=== PATIENT | female | born 1960 | race American Indian/Alaskan Native ===

== ENCOUNTER 2016-07-05 21:00 | Emergency (ER) | payer SELFPAY ==
[2016-07-05 21:55] LABS: Basophils % (Auto) 0.8 % (0.0-1.8); Eosinophils % (Auto) 2.4 % (0.0-4.3); Hematocrit 33.4 % (30.3-42.9); Hemoglobin 11.1 gm/dl (10.1-14.3); Mean Corpuscular HGB Conc 33 % (30-34); Mean Corpuscular Hemoglobin 30 pg (28-32); Mean Corpuscular Volume 90 fl (79-97); Platelet Count 139 K/mm3 (140-440); Red Blood Count 3.71 M/mm3 (3.65-5.03); Red Cell Distribution Width 18.2 % (13.2-15.2); White Blood Count 4.5 K/mm3 (4.5-11.0)
[2016-07-05 22:07] LABS: Alanine Aminotransferase 68 units/L (7-56); Albumin 3.2 g/dL (3.9-5); Albumin/Globulin Ratio 0.8 %; Alkaline Phosphatase 268 units/L (35-129); Anion Gap 16 mmol/L; Bilirubin,Total 1.5 mg/dL (0.1-1.2); Blood Urea Nitrogen 3 mg/dL (7-17); Calcium 8.1 mg/dL (8.4-10.2); Carbon Dioxide 24 mmol/L (22-30); Chloride 109.7 mmol/L (98-107); Glucose 104 mg/dL (65-100); Potassium 3.6 mmol/L (3.6-5.0); Sodium 146 mmol/L (137-145); Total Protein 7.3 g/dL (6.3-8.2)
[2016-07-06 06:07] LABS: Bilirubin,Urine NEG (Negative); Blood,Urine NEG (Negative); Ketones,Urine NEG (Negative); Leukocyte Esterase,Urine NEG (Negative); Mucus,Urine FEW /HPF; Nitrite,Urine POS (Negative); Protein,Urine <15 mg/dL mg/dL (Negative); RBC,Urine < 1.0 /HPF (0.0-6.0); Urobilinogen,Urine < 2.0 mg/dL (<2.0); WBC,Urine < 1.0 /HPF (0.0-6.0)
[2016-07-06] MEDS ORDERED: DILAUDID IM ONE (07:46)
[2016-07-06] MEDS ORDERED: BENADRYL PO ONE ×2 (08:15→08:18)
[2016-07-06 08:26] VITALS: BP 110/64
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
== END 2016-07-06 09:07 | disposition home or self-care (01) ==
LOC: ED 21:00
DX: M79.2 Neuralgia and neuritis, unspecified (principal); G43.909 Migraine, unspecified, not intractable, without status migrainosus; F17.200 Nicotine dependence, unspecified, uncomplicated
CPT/HCPCS: 36415; 80053; 81001; 85025; 96372; 99283; J1170